=== PATIENT | female | born 1980 | race African-American/Black ===

== ENCOUNTER 2019-02-06 07:35 | Emergency (ER) | payer SELFPAY ==
[2019-02-06 08:20] LABS: Absolute Lymphocytes (CBC) 3.5 K/uL (0.7-4.9); Hematocrit 36.6 % (36.0-45.0); Lymphocytes % 49.3 % (15.3-44.8); MPV 8.3 fL (7.6-11.3); RBC Red Blood Cell Count 3.39 M/uL (3.86-4.86)
--- NOTE | 2019-02-06 08:26 | RAD REPORT ---
EXAM DESCRIPTION: RAD - Chest Single View - 02/06/2019 8:00 am CLINICAL HISTORY: DYSPNEA Chest pain. COMPARISON: No comparisons FINDINGS: Portable technique limits examination quality. The lungs are grossly clear. The heart is normal in size. No displaced fractures. IMPRESSION: No acute intrathoracic process suspected.
[2019-02-06 08:41] LABS: BUN Blood Urea Nitrogen 11 mg/dL (7-18); Bicarbonate 25 mmol/L (21-32); Glucose Level 72 mg/dL (74-106); Potassium 3.6 mmol/L (3.5-5.1); Sodium Level 144 mmol/L (136-145)
--- NOTE | 2019-02-06 08:52 | ER ---
Nurse's Notes [facility] Name: Debra Betts Age: 38 yrs Sex: Female : 1980 Arrival Date: 02/06/2019 Time: 07:36 Bed 4 Private MD: Diagnosis: Anxiety disorder, unspecified;Urinary tract infection, site not specified Presentation: 02/06 07:37 Presenting complaint: EMS states: SOB AND FINGER TINGLING. Transition of care: patient bp was not received from another setting of care. Onset of symptoms is unknown. Risk Assessment: Do you want to hurt yourself or someone else? Patient reports no desire to harm self or others. Initial Sepsis Screen: Does the patient meet any 2 criteria? HR > 90 bpm. No. Patient's initial sepsis screen is negative. Does the patient have a suspected source of infection? No. Patient's initial sepsis screen is negative. Care prior to arrival: None. 07:37 Method Of Arrival: EMS: [facility] bp 07:37 Acuity: LIANA 2 bp Triage Assessment: 07:39 General: Appears in no apparent distress. comfortable, Behavior is cooperative, bp appropriate for age, anxious, crying. Pain: Denies pain. EENT: No deficits noted. Neuro: No deficits noted. Cardiovascular: No deficits noted. Rhythm is sinus rhythm. Respiratory: No deficits noted. GI: No signs and/or symptoms were reported involving the gastrointestinal system. : No signs and/or symptoms were reported regarding the genitourinary system. Derm: No deficits noted. Musculoskeletal: No deficits noted. 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 - Social history:: Smoking status: Patient uses tobacco products, unknown amount Patient uses alcohol, street drugs. - Ebola Screening: : No symptoms or risks identified at this time. - Family history:: not pertinent. - Hospitalizations: : No recent hospitalization is reported. Screenin:42 Abuse screen: Denies threats or abuse. Denies injuries from another. Nutritional bp screening: No deficits noted. Tuberculosis screening: No symptoms or risk factors identified. Fall Risk None identified. Assessment: 07:42 General: SEE TRIAGE NOTE. bp 09:08 Reassessment: PT D/C HOME AMBULATORY WITH FAMILY, DX WITH ANXIETY AND UTI. bp Vital Signs: 07:39 BP 150 / 104; Pulse 95; Resp 16; Temp 98; Pulse Ox 98% ; bp 09:08 BP 132 / 82; Pulse 83; Resp 16; Temp 98; Pulse Ox 100% ; bp ED Course: 07:36 Patient arrived in ED. bp 07:38 Triage completed. bp 07:39 Elian Perez MD is Attending Physician. rn 07:39 Arm band placed on. bp 07:42 Patient has correct armband on for positive identification. Bed in low position. Call bp light in reach. Side rails up X2. 07:58 XRAY Chest (1 view) In Process Unspecified. EDMS 08:00 Inserted saline lock: 20 gauge in right antecubital area, using aseptic technique. bp Blood collected. 08:08 Simon Pierre, RN is Primary Nurse. bp 08:11 EKG done, by lidar technician. reviewed by Elian Perez MD. sm3 09:08 No provider procedures requiring assistance completed. IV discontinued, intact, bp bleeding controlled, No redness/swelling at site. Pressure dressing applied. Administered Medications: No medications were administered Outcome: 08:52 Discharge ordered by . rn 09:09 Discharged to home ambulatory, with family. bp 09:09 Condition: stable 09:09 Discharge instructions given to patient, Instructed on discharge instructions, follow up and referral plans. medication usage, Demonstrated understanding of instructions, follow-up care, medications, Prescriptions given X 1. 09:09 Patient left the ED. bp Signatures: Dispatcher [employer] EDMS Elian Perez MD MD rn Peltier, Brian, RN RN Samra Joshi sm3
--- NOTE | 2019-02-06 08:52 | EDPHYS ---
Physician Documentation [facility] Name: Debra Betts Age: 38 yrs Sex: Female : 1980 Arrival Date: 02/06/2019 Time: 07:36 Bed 4 Private MD: ED Physician Elian Perez HPI: 02/06 07:40 This 38 yrs old Black Female presents to ER via EMS with complaints of Anxiety. rn 07:40 The patient has shortness of breath at rest. Onset: The symptoms/episode began/occurred rn this morning. Duration: The symptoms are continuous. The patient's shortness of breath is aggravated by nothing, is alleviated by nothing. Severity of symptoms: At their worst the symptoms were moderate in the emergency department the symptoms have improved. The patient has experienced similar episodes in the past. Reports woke up with sob and chest tightness, radiating to left shoulder, reports had been having neck pain last night, has hx of anxiety and felt like couldn't breathe. Also reports numbness to face and extremities. No famhx of early cardiac problems. No cough/fever/abd pain/vomiting/diarrhea.. 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 - Social history:: Smoking status: Patient uses tobacco products, unknown amount Patient uses alcohol, street drugs. - Ebola Screening: : No symptoms or risks identified at this time. - Family history:: not pertinent. - Hospitalizations: : No recent hospitalization is reported. ROS: 07:40 Constitutional: Negative for fever, chills, and weight loss, Eyes: Negative for injury, rn pain, redness, and discharge, Neck: Negative for injury, pain, and swelling, Cardiovascular: Negative for edema Respiratory: Negative for cough, wheezing, and pleuritic chest pain, Abdomen/GI: Negative for abdominal pain, nausea, vomiting, diarrhea, and constipation, MS/Extremity: Negative for injury and deformity, Skin: Negative for injury, rash, and discoloration, Neuro: Negative for headache, weakness, and seizure. Exam: 07:40 Constitutional: This is a well developed, well nourished patient who is awake, alert, rn tearful, hyperventilating Head/Face: Normocephalic, atraumatic. Eyes: Pupils equal round and reactive to light, extra-ocular motions intact. Lids and lashes normal. Conjunctiva and sclera are non-icteric and not injected. Cornea within normal limits. Periorbital areas with no swelling, redness, or edema. ENT: MMM, no stridor or oral swelling Cardiovascular: Regular rate and rhythm. No pulse deficits. Respiratory: Mild hyperventilation, clear bilateral breath sounds Abdomen/GI: soft, non-tender MS/ Extremity: Pulses equal, no cyanosis. Neurovascular intact. Full, normal range of motion. Equal circumference. Neuro: Awake and alert, GCS 15, oriented to person, place, time, and situation. Cranial nerves II-XII grossly intact. Motor strength 5/5 in all extremities. Sensory grossly intact. Cerebellar exam normal. 07:54 ECG was reviewed by the Attending Physician. rn Vital Signs: 07:39 BP 150 / 104; Pulse 95; Resp 16; Temp 98; Pulse Ox 98% ; bp 09:08 BP 132 / 82; Pulse 83; Resp 16; Temp 98; Pulse Ox 100% ; bp MDM: 07:39 Patient medically screened. rn 08:51 Differential diagnosis: Anxiety Reaction Myocardial Infarction Pneumothorax Pulmonary rn Embolism. Data reviewed: vital signs, nurses notes, lab test result(s), EKG, radiologic studies, plain films, and as a result, I will discharge patient. Counseling: I had a detailed discussion with the patient and/or guardian regarding: the historical points, exam findings, and any diagnostic results supporting the discharge/admit diagnosis, lab results, radiology results, the need for outpatient follow up, to return to the emergency department if symptoms worsen or persist or if there are any questions or concerns that arise at home. Response to treatment: the patient's symptoms have markedly improved after treatment, requesting to go home.. Special discussion: Based on the patient's history, exam, and Dx evaluation, there is no indication for emergent intervention or inpatient Tx. It is understood by the patient/guardian that if the Sx's persist or worsen they need to return immediately for re-evaluation. I discussed with the patient/guardian in detail that at this point there is no indication for admission to the hospital. It is understood, however, that if the symptoms persist or worsen the patient needs to return immediately for re-evaluation. 02/06 07:40 Order name: CBC with Diff rn 02/06 07:40 Order name: Basic Metabolic Panel; Complete Time: 08:49 rn 02/06 07:40 Order name: Urine Microscopic Only rn 02/06 07:40 Order name: D-Dimer; Complete Time: 08:49 rn 02/06 07:46 Order name: Troponin (emerg Dept Use Only); Complete Time: 08:49 rn 02/06 08:12 Order name: Urine Dipstick--Ancillary (enter results) bd 02/06 07:40 Order name: IV Start; Complete Time: 08:09 rn 02/06 07:40 Order name: Urine Test (obtain specimen); Complete Time: 08:09 rn 02/06 07:40 Order name: Urine Dipstick-Ancillary (obtain specimen); Complete Time: 08:09 rn 02/06 07:40 Order name: EKG; Complete Time: 07:41 rn 02/06 07:40 Order name: EKG - Nurse/Tech; Complete Time: 07:43 rn 02/06 07:40 Order name: XRAY Chest (1 view); Complete Time: 08:34 rn 02/06 08:12 Order name: Urine --Ancillary (enter results) bd EC:54 Rate is 93 beats/min. Rhythm is regular. QRS [place] is Normal. DE interval is normal. QRS rn interval is normal. QT interval is normal. No Q waves. T waves are Inverted in leads V4, V5, V6. No ST changes noted. Clinical impression: NSR w/ Non-specific ST/T Changes. Interpreted by me. Reviewed by me. Administered Medications: No medications were administered Disposition: 02/06/19 08:52 Discharged to Home. Impression: Anxiety disorder, unspecified, Urinary tract infection, site not specified. - Condition is Stable. - Discharge Instructions: Panic Attacks, Urinary Tract Infection, Adult, Generalized Anxiety Disorder. - Prescriptions for Macrobid 100 mg Oral Capsule - take 1 capsule by ORAL route every 12 hours for 7 days; 14 capsule. - Medication Reconciliation Form, Thank You Letter, Antibiotic Education, Prescription Opioid Use form. - Follow up: Private Physician; When: As needed; Reason: Recheck today's complaints, Re-evaluation by your physician. - Problem is new. - Symptoms have improved. Signatures: Dispatcher [employer] EDMS Elian Perez MD MD rn Simon Pierre RN RN bp Corrections: (The following items were deleted from the chart) 09: 08:52 02/06/2019 08:52 Discharged to Home. Impression: Anxiety disorder, unspecified; bp Urinary tract infection, site not specified. Condition is Stable. Forms are Medication Reconciliation Form, Thank You Letter, Antibiotic Education, Prescription Opioid Use. Follow up: Private Physician; When: As needed; Reason: Recheck today's complaints, Re-evaluation by your physician. Problem is new. Symptoms have improved. rn
[2019-02-06 09:37] LABS: Urine Bacteria LOADED /HPF (<20); Urine Culture Reflex Order REFLEXED; Urine Mucus 1+ /HPF (NONE SEEN); Urine RBC <5 /HPF (NONE SEEN)
[2019-02-06 09:44] LABS: Urine Blood NEGATIVE (NEG); Urine Glucose NEGATIVE (NEG); Urine Protein NEGATIVE (NEG); Urine pH 5.5 (5.0-7.0)
[2019-02-06 10:46] LABS: Blood Morphology Comment NOT SEEN (NOT SEEN); Platelet Estimate ADEQ; Urine White Blood Cell Casts OK
--- NOTE | 2019-02-06 12:20 | EKG ---
Test Date: 2019-02-06 Test Time: 07:37:39 [employer] Teacher: ERNIE MEASUREMENT RESULTS: Intervals: Rate: 93 UT: 130 QRSD: 76 QT: 358 QTc: 445 [place]: P: 72 UT: 130 QRS: 68 T: -6 INTERPRETIVE STATEMENTS: Normal sinus rhythm T wave abnormality, consider inferior ischemia Abnormal ECG No previous ECG available for comparison Electronically Signed On 02-06-19 12:20:08 CDT by Paul Garcia
== END 2019-02-06 09:09 | disposition home or self-care (01) ==
LOC: ER 07:35
DX: F41.9 Anxiety disorder, unspecified (principal); N39.0 Urinary tract infection, site not specified; Z72.0 Tobacco use
CPT/HCPCS: 36415; 71045; 80048; 81003; 81015; 81025; 84484; 85025; 85379; 87086; 87088; 93005; 99284